=== PATIENT | male | born 1940 | race Caucasian/White ===

== ENCOUNTER 2019-10-04 08:37 | Inpatient (IN) | payer OTHER, MEDICARE ==
[~2019-10-04] VITALS: Ht 182.9 cm; Wt 166.5 kg
[2019-10-04 08:39] VITALS: BP 166/70
[2019-10-04] MEDS ORDERED: ALLOPURINOL 10100 M3 PO (08:53)
[2019-10-04] MEDS ORDERED: PROAIR HFA8.5 GM INH (08:53)
[2019-10-04] MEDS ORDERED: ADVAIR 250-501 EACH INH (08:53)
[2019-10-04] MEDS ORDERED: ASA81BEC PO (08:54)
[2019-10-04] MEDS ORDERED: AZELASTINE205.5 MCG/ NASAL (08:55)
[2019-10-04] MEDS ORDERED: FUROSEMIDE 40 M40 MG PO (08:55)
[2019-10-04] MEDS ORDERED: KEFLEX500 M1 PO (08:55)
[2019-10-04] MEDS ORDERED: HUMULIN 70100 UNIT/3 SUBQ (08:56)
[2019-10-04] MEDS ORDERED: LEVO-T100 MCG PO (08:57)
[2019-10-04] MEDS ORDERED: HYDROCORTISONE30 G4 PO (08:57)
[2019-10-04] MEDS ORDERED: MAGNESIUM250 M1 PO (08:58)
[2019-10-04] MEDS ORDERED: METHOTREXATE 22.5 M1 PO (08:59)
[2019-10-04] MEDS ORDERED: METOLAZONE 2.52.5 M1 PO (09:00)
[2019-10-04] MEDS ORDERED: POTASSIUM20 PO (09:01)
[2019-10-04] MEDS ORDERED: TOPROL XL50 MG PO (09:01)
[2019-10-04] MEDS ORDERED: CRESTOR40 MG PO (09:02)
[2019-10-04] MEDS ORDERED: ANTACID650 MG PO (09:02)
[2019-10-04] MEDS ORDERED: CHILDREN'S NA10.8 ML TOP (09:03)
[2019-10-04] MEDS ORDERED: B COMPLEX1 EACH PO (09:04)
[2019-10-04 09:54] LABS: ABSOLUTE NEUTROPHILS 10.8 thou/uL (1.4-8.2); BASOPHILS 1.1 % (0.0-2.0); EOSINOPHILS 2.1 % (0.0-3.0); HEMATOCRIT 40.5 % (42.0-52.0); HEMOGLOBIN 13.1 gm/dL (14.0-18.0); LYMPHOCYTES 9.6 % (24.0-44.0); MCH 30.9 pg (26.0-34.0); MCHC 32.3 g/dL (28.0-37.0); MCV 95.7 fL (80.0-100.0); MONOCYTES 9.1 % (1.0-8.0); PLATELET COUNT 184 thou/uL (150-400); POLYS 78.1 % (36.0-66.0); RBC 4.23 mil/uL (4.50-6.00); RDW 15.7 % (10.5-14.5); WBC 13.8 thou/uL (4.0-11.0)
[2019-10-04 10:04] LABS: CALCIUM 9.6 mg/dL (8.5-10.1); CREATININE 2.2 mg/dL (0.7-1.3)
[2019-10-04 10:12] LABS: TROPONIN-I 0.09 ng/mL (<0.06)
--- NOTE | 2019-10-04 13:36 | 2DMMODE ---
[facility] [place] [address] 2 D/M-MODE ECHOCARDIOGRAM Name: REGINA MORA Room #: 170-2 ADM IN M.R.#: [id number] Admission: 10/04/19 Attend Phys: Britton Vang, Discharge: Date of : 38 Report #: [id number] THIS REPORT FOR: //name// APPROVED REPORT Study performed: 10/04/2019 13:28:59 EXAM: Comprehensive 2D, Doppler, and color-flow Echocardiogram Patient Location: ER Status: routine BSA: 2.72 HR: 85 bpm BP: 160/77 mmHg Rhythm: NSR Other Information Study Quality: Adequate Indications Fluid overload. Short of breath. Hx: morbid obesity, HTN, HLP, DM. 2D Dimensions RVDd: 39.43 mm IVSd: 14.00 (7-11mm) LVOT Diam: 22.51 (18-24mm) LVDd: 59.00 mm PWd: 13.00 (7-11mm) Ascending Ao: 41.36 (22-36mm) LVDs: 47.34 (25-40mm) Aortic Root: 37.50 mm Volumes Left Atrial Volume (Systole) Single Plane 4CH: 132.31 mL Single Plane 2CH: 114.82 mL LA ESV Index: 51.00 mL/m2 Aortic Valve AoV Peak Miguel.: 4.79 m/s AO Peak Gr.: 91.80 mmHg LVOT Max P.51 mmHg AO Mean Gr.: 62.25 mmHg AO V2 Mean: 3.81 m/s LVOT Max V: 0.94 m/s AO V2 VTI: 106.79 cm DESI Vmax: 0.78 cm2 Mitral Valve [facility] [address] [address] 2 D/M-MODE ECHOCARDIOGRAM Name: REGINA MORA Room #: [facility]2 ADM IN .R.#: [id number] Admission: 10/04/19 Attend Phys: Britton Vang, Discharge: Date of : 39 Report #: [id number] MV Decel. Time: 203.81 ms MV PHT: 59.10 ms IVRT: 57.67 ms Pulmonary Valve PV Peak Miguel.: 0.92 m/s PV Peak Gr.: 3.36 mmHg Tricuspid Valve TR Peak Miguel.: 3.25 m/s RAP Estimate: 10.00 mmHg TR Peak Gr.: 42.39 mmHg PA Pressure: 52.00 mmHg Left Ventricle Left ventricle is mildly dilated. Regional wall motion abnormalities are noted. Moderate concentric left ventricular hypertrophy. The left ventricular systolic function is normal. LVEF is 55%. Moderate diastolic dysfunction is present (pseudonormal filling). Right Ventricle The right ventricle is normal size. The right ventricular systolic function is normal. Atria Left atrium is severely dilated. The right atrium size is normal. Aortic Valve Aortic valve is heavily calcified. Mild aortic regurgitation. There is severe valvular aortic stenosis. Calculated aortic valve area is 0.8 cm2 with maximum pressure gradient of 92 mmHg and mean pressure gradient of 62 mmHg. Mitral Valve Mitral valve leaflets are thickened and calcified. Heavily calcified annulus. Moderate to severe mitral regurgitation Mild mitral stenosis with a mean pressure gradient of 8mmHg. Tricuspid Valve The tricuspid valve is normal in structure. Mild tricuspid regurgitation. Estimated PAP is 50mmHg. Pulmonic Valve The pulmonary valve is normal in structure. Trace pulmonic regurgitation. Great Vessels [facility] [address] [place] [address] 2 D/M-MODE ECHOCARDIOGRAM Name: [facility] Room #: 170-2 ADM IN M.R.#: [id number] Admission: 10/04/19 Attend Phys: Britton Vang, Discharge: Date of : 39 Report #: [id number] The aortic root is normal in size. Ascending aorta is dilated at 4.1cm. IVC is dilated and collapses >50% with inspiration. Pericardium There is no pericardial effusion. <Conclusion> Left ventricle is mildly dilated. Moderate concentric left ventricular hypertrophy. The left ventricular systolic function is normal. Moderate diastolic dysfunction is present (pseudonormal filling). The right ventricle is normal size. Left atrium is severely dilated. There is severe valvular aortic stenosis. Mild aortic regurgitation. Mitral valve leaflets are thickened and calcified. Heavily calcified annulus. Moderate to severe mitral regurgitation Mild tricuspid regurgitation. Estimated PAP is 50mmHg. <ELECTRONICALLY SIGNED> By: Hamilton Olmstead MD 10/04/191335 35 35 Hamilton Olmstead MD /INF
[2019-10-04 16:45] VITALS: BP 134/56
[2019-10-04 17:46] VITALS: BP 134/67
[2019-10-04] MEDS ORDERED: SODIUM BICARBO650 M3 PO (18:06)
[2019-10-04 19:27] VITALS: BP 139/83
[2019-10-04 23:08] LABS: GLYCOHEMOGLOBIN (HGB A1C) 7.3 % (4.8-5.6)
[2019-10-04 23:35] VITALS: BP 111/53
--- NOTE | 2019-10-05 03:10 | NUR ---
Patient making slow progress towards outcome goals. SOA on roomair, sat 94%. Oxygen 2L NC applied sats 96%, shortness of air improved. Diuresing from Lasix. Meets high fall risk criteria but patient declined alarm and wrist band. Does have yellow socks on. Calls out appropriately for needs. Gait steady when observed walking. Vital signs and rhythm stable.
[2019-10-05 03:29] VITALS: BP 122/49
[2019-10-05 05:44] LABS: ABSOLUTE NEUTROPHILS 8.7 thou/uL (1.4-8.2); ANION GAP 10 mmol/L (7-16); BASOPHILS 0.9 % (0.0-2.0); BUN 78 mg/dL (7-18); CALCIUM 9.6 mg/dL (8.5-10.1); CHLORIDE 101 mmol/L (98-107); CHOLESTEROL 166 mg/dL (<200); CO2 29 mmol/L (21-32); CREATININE 2.4 mg/dL (0.7-1.3); EOSINOPHILS 1.9 % (0.0-3.0); GLUCOSE 264 mg/dL (74-106); HDL CHOLESTEROL 41 mg/dL (>40); HEMATOCRIT 38.8 % (42.0-52.0); HEMOGLOBIN 12.7 gm/dL (14.0-18.0); LDL CHOLESTEROL 92 mg/dL (<100); LYMPHOCYTES 7.8 % (24.0-44.0); MAGNESIUM 1.8 mg/dL (1.8-2.4); MCH 31.3 pg (26.0-34.0); MCHC 32.9 g/dL (28.0-37.0); MCV 95.1 fL (80.0-100.0); MONOCYTES 9.6 % (1.0-8.0); PLATELET COUNT 191 thou/uL (150-400); POLYS 79.8 % (36.0-66.0); RBC 4.08 mil/uL (4.50-6.00); RDW 15.4 % (10.5-14.5); SODIUM 140 mmol/L (136-145); TRIGLYCERIDE 165 mg/dL (<150); VLDL 33 mg/dL (<40); WBC 10.8 thou/uL (4.0-11.0)
[2019-10-05 06:15] LABS: SERUM ASSESSMENT Clear
[2019-10-05 07:45] VITALS: BP 140/65
--- NOTE | 2019-10-05 09:59 | NUR ---
ASSESSMENT: CM REVIEWED CHART AND MET WITH PATIENT AT THE BEDSIDE. PT WAS ADMITTED WITH ELEVATED TROPONIN. PT REPORTS HE LIVES IN A HOUSE WITH HIS DAUGHTER AND HER . PT REPORTS HAVING 2 STEPS TO ENTER WITH A POST HE CAN HOLD ON TO. PT REPORTS ONCE INSIDE HE DOES NOT HAVE TO USE ANY STEPS. PT REPORTS HE USES A CANE FOR AMBULATION. PT STATES HE HAS A GRAB BAR AND SHOWER CHAIR AND IS INDEPENDENT WITH ADLS. PT DOES NOT WEAR OXYGEN. PT REPORTS HE HAS BEEN TO SNF IN THE PAST OUT OF STATE BUT NOT RECENTLY. PT DOES NOT ANTICIPATE HAVING ANY NEEDS AT DISCHARGE. PT REPORTS HE HAS NOT HAD HH. PT/OT IS ORDERED AND EVALS ARE PENDING. CM WILL CONTINUE TO FOLLOW TO ASSIST NEEDED.
--- NOTE | 2019-10-05 10:25 | HC ---
[facility] [place] [address] CONSULTATION Name: REGINA MORA Room #: 349-I ADM IN M.R.#: [id number] Admission: 10/04/19 Attend Phys: Britton Vang MD Discharge: Date of : 39 Report #: [id number] THIS REPORT FOR: //name// CC: FAM unknown Britton Vang DATE OF SERVICE: 10/04/2019 CONSULTING PHYSICIAN: Dr. Vang. REASON FOR CONSULTATION: Uncontrolled type 2 diabetes mellitus, hypothyroidism. HISTORY OF PRESENT ILLNESS: This is an 79-year-old male patient who is being admitted due to progressive shortness of breath and dyspnea on exertion. His background is noted for obstructive sleep apnea, CAD, peripheral vascular disease as well as diabetes mellitus and hypertension. The patient has had type 2 diabetes mellitus for over 25 years and has long been on insulin therapy only. He notes that he was not able to keep up with the cost of insulin analogs and was eventually maintained on a combination of Novolin 70/30 at a dose of 110 units 2-3 times a day in addition to human R insulin taken at a dose of 80 units 2-3 times a day as well. He notes that his blood glucose values fluctuate rather widely going anywhere from severe hypoglycemia in the 40s to severe hyperglycemia in the 500 range. However, he maintains that the last hemoglobin A1c that he recalls was at 7.3%. The patient obtains routine eye exams and is not aware of issues of diabetic retinopathy affecting his eyes. The patient does not have major difficulties with peripheral diabetic neuropathy. He notes that his creatinine baseline is about 2.4. The patient also is hypothyroid and has been so for many years and is maintained currently on levothyroxine 150 mcg daily, which he says has been on board for a few years. The patient is known to have hyperlipidemia and is on therapy with rosuvastatin 40 mg daily as well as has hypertension and is maintained on treatment with metolazone. REVIEW OF SYSTEMS: CONSTITUTIONAL: Fatigue, tiredness, but not body weight changes, fever or chills. PULMONARY: Dyspnea on exertion, shortness of breath, cough and hemoptysis. CARDIAC: Dyspnea on exertion, orthopnea, progressive lower extremity swelling. No chest pain. GASTROINTESTINAL: Abdominal distention, discomfort, nausea, but not vomiting. NEUROLOGY: Occasional lightheadedness, dizziness, right arm numbness, but not loss of consciousness or seizure activity. PSYCHIATRIC: No major issues or delusions, hallucinations. [facility] [address] [place] [address] CONSULTATION Name: REGINA MORA Room #: 349-I ADM IN ..#: [id number] Admission: 10/04/19 Attend Phys: Britton Vang MD Discharge: Date of : 39 Report #: [id number] SKIN: No major issues with rash, ulceration or other major skin changes. Otherwise, his review of systems is noncontributory other than those mentioned in HPI. PAST MEDICAL HISTORY: 1. Type 2 diabetes mellitus. 2. Polymyalgia rheumatica. 3. Cellulitis. 4. Chronic bronchitis. 5. Gout. 6. Obstructive sleep apnea. 7. Cataracts. 8. Peripheral vascular disease, status post carotid endarterectomy. 9. Morbid obesity. 10. Osteoarthritis. 11. History of coronary artery disease. OUTPATIENT MEDICATIONS: Include: 1. Albuterol. 2. Advair. 3. Allopurinol. 4. Aspirin. 5. Keflex. 6. Furosemide. 7. Humulin 70/30 insulin 110 units t.i.d. 8. Human R insulin 70-80 units t.i.d. 9. Levothyroxine 150 mcg daily. 10. Hydrocortisone 20 mg b.i.d. 11. Magnesium 535 mg daily. 12. Methotrexate 2.5 mg weekly. 13. Metolazone 5 mg. 14. Metoprolol 50 mg daily. 15. KCl 10 mEq daily. 16. Rosuvastatin 40 mg daily. 17. Antacid 650 mg b.i.d. 18. Vitamin B complex. ALLERGIES: No known drug allergies. FAMILY HISTORY: Is noted for significant history of heart disease. SOCIAL HISTORY: The patient has 2 children. Denies the use of alcohol or illicit drugs. He is an ex-smoker, quit more than a year ago. PHYSICAL EXAMINATION: GENERAL: Pleasant male patient who is not in apparent pain or [address] [place] [address] CONSULTATION Name: REGINA MORA Room #: 349-I ADM IN M.R.#: [id number] Admission: 10/04/19 Attend Phys: Britton Vang MD Discharge: Date of : 39 Report #: [id number] distress, lying in bed comfortably. VITAL SIGNS: Blood pressure is 160/77 mmHg, heart rate is 87 beats per minute, respiration 34 per minute, temperature 36.3 degrees. CONSTITUTIONAL: The patient lies in bed comfortably. He is not in apparent pain or distress. HEENT: Anicteric sclerae. Intact extraocular motions. NECK: Supple, without JVD, carotid bruits or lymphadenopathy. I do not appreciate thyromegaly. CHEST: Noted for distant breath sounds with scattered rhonchi, wheezes and bibasilar crackles. HEART: Regular rate and rhythm without murmurs or gallops. ABDOMEN: Soft and lax without tenderness or organomegaly, distended, but not tense. No guarding is appreciated. EXTREMITIES: Lower extremity exam is noted for pitting edema bilaterally with chronic stasis dermatitis. NEUROLOGIC: Awake, alert and oriented to time, place and person. The remainder of his examination is nonfocal. PSYCHIATRIC: Normal mood and affect pleasant, interactive. LABORATORY DATA: Sodium 139, potassium 4.0, chloride 102, CO2 28, anion gap 9, BUN 76, creatinine 2.2. Glucose 218, calcium 9.6, GFR 29. Troponin 0.09. BNP 8033. White blood count 13.8, hemoglobin 13.1 and platelets 184. A portable chest x-ray was noted for cardiomegaly, vascular congestion with mild infiltrate diffusely suggesting edema. ASSESSMENT AND PLAN: 1. Type 2 diabetes mellitus. As noted above, the patient has had a longstanding history of type 2 diabetes mellitus that has been marked by poor control and very large insulin dose requirements. As noted in HPI, the patient made a very valid point of cost and access issues to insulin analogs, which would make human insulin the far more practical choice for him. However, and especially in view of his large dose requirement, mixed insulin would not be the best choice for him, and as such, I would like to split his insulin intake to where it will consist of an N and an R component for more flexibility and control. That said, I will start the patient on coverage with human N insulin a.k.a. NPH insulin at a dose of 80 units twice a day and cover his meals with human R insulin at a dose of 50 units with each meal while we maintain support with high intensity Humalog supplemental scale and check his blood glucose values a.c. and at bedtime. The patient's calculated creatinine clearance factoring his age and weight shows a creatinine clearance of 60, which is permissive of some oral options. I will await further medical and clinical stability before we venture into this. 2. Hypothyroidism. The patient has a longstanding history of hypothyroidism and is maintained on a stable dose of levothyroxine. I will further evaluate the adequacy of this dose with a TSH and free T4 levels. 3. Hyperlipidemia. The patient is maintained on high dose statin therapy for [facility] [address] [place] [address] [facility] Room #: 349-I ADM IN .R.#: [id number] Admission: 10/04/19 Attend Phys: Britton Vang MD Discharge: Date of : 39 Report #: [id number] hyperlipidemia. He is to continue with the same. 4. Congestive heart failure, hypertension. The patient has ongoing issues in this regard and a Cardiology evaluation is pending. I certainly appreciate this consultation by Dr. Vang. <ELECTRONICALLY SIGNED> By: Harmeet Schneider MD 10/05/19 1025 1257 0037 MD kristan Joyner
--- NOTE | 2019-10-05 10:56 | NUR ---
Assess due to high BMI 50.9=extreme class III obesity and RD consult received per pt request. Admit with fluid overload. Hx poor controlled diabetes. Renal and cardiology consulted, and Endocronologist managing pts BG and insulin needs. Hx lap band placement in 2008 (pt still has)-pt asked to speak with RD regarding menu adjustments as he cannot eat dry foods without them "coming back up on me". Pt able to order own foods and will allow small side of low Na gravy. Pt denied need for any diet education. A1C is 7.3. Pt states was 455 prior to lap band in 2008, and now maintains 355 lb. Current wt is up 375 lb (fluid overload). Asking for extra juice to prevent cramping-explained this is not encouraged as BG are elevated. Low nutrition risk
[2019-10-05 11:19] VITALS: BP 135/60
[2019-10-05 15:21] VITALS: BP 111/50
--- NOTE | 2019-10-05 16:50 | EKG ---
[place] [address] [facility] [place] [address] ELECTROCARDIOGRAM REPORT Name: ABBYREGINA Room #: 349-I ADM IN M.R.#: [id number] Admission: 10/04/19 Attend Phys: Britton Vang MD Discharge: Date of : 39 Report #: [id number] THIS REPORT FOR: //name// [facility] ED Test Date: 2019-10-04 Test Time: 08:43:03 Pat Name: REGINA MORA Department: Room: 349 Gender: M E Commerce Solution Architect: NAJMA : 1940 Requested By: Miguelito Hernandez Order Number: [id number] MD: Ramos Moya Measurements Intervals [place] Rate: 81 P: 1 NE: 183 QRS: -21 QRSD: 95 T: 13 QT: 410 QTc: 476 Interpretive Statements Sinus rhythm Atrial premature complex Left ventricular hypertrophy Borderline prolonged QT interval Baseline wander in lead(s) II No previous ECG available for comparison Electronically Signed On 10-05-2019 16:50:12 CLERICAL TRANSCRIBER by Ramos Moya [email or web address] <ELECTRONICALLY SIGNED> By: Ramos Moya MD, [facility] 10/05/19 9082 0843 0843 Ramos Moya MD, [facility] /EPI
--- NOTE | 2019-10-05 17:05 | EKG ---
[address] [address] ELECTROCARDIOGRAM REPORT Name: REGINA MORA Room #: 349-I ADM IN M.R.#: [id number] Admission: 10/04/19 Attend Phys: Britton Vang MD Discharge: Date of : 39 Report #: [id number] THIS REPORT FOR: //name// [facility] Test Date: 2019-10-05 Test Time: 08:35:31 Pat Name: REGINA MORA Department: Room: 349 I Gender: M Spreader: rt : 1940 Requested By: Rosa Boyer Order Number: [id number] MD: Ramos Moya Measurements Intervals [place] Rate: 105 P: 44 CO: 158 QRS: -24 QRSD: 98 T: 90 QT: 387 QTc: 512 Interpretive Statements Sinus tachycardia Ventricular premature complex LVH with secondary repolarization abnormality Prolonged QT interval No previous ECG available for comparison Electronically Signed On 10-05-2019 17:05:33 MA[employer]GER [employer] by Ramos Moya [email or web address] <ELECTRONICALLY SIGNED> By: Ramos Moya MD, [facility] 10/05/19 1705 4 4 Ramos Moya MD, [facility] /EPI
[2019-10-05 19:21] VITALS: BP 117/61
[2019-10-06 03:50] VITALS: BP 101/41
[2019-10-06 05:16] LABS: ALBUMIN 2.8 g/dL (3.4-5.0); CALCIUM 9.4 mg/dL (8.5-10.1); CREATININE 2.3 mg/dL (0.7-1.3); POTASSIUM 4.7 mmol/L (3.5-5.1)
--- NOTE | 2019-10-06 05:28 | NUR ---
SLEPT MOST OF SHIFT. WORKING ON GOALS AND PLAN OF CARE FOR NOC. MAINTAIN SAFE ENVIRONMENT. UP AD DOUGIE WITH STEADY GAIT. PROGRESSING SLOWLY TOWARDS DISCHARGE GOALS. WATCHING BLOOD SUGAR CLOSELY. CONTINUE TO ASSES.
[2019-10-06 07:44] VITALS: BP 125/45
[2019-10-06] MEDS ORDERED: METOPROLOL SUCC50 MG PO (09:27)
[2019-10-06 11:50] VITALS: BP 130/74
--- NOTE | 2019-10-06 12:08 | NUR ---
ASSUMED CARE OF PT AT 0700. PT LAERT AND ORIENTED. INSULIN REGIMEN ADJUSTED BY ENDOCRONOLOGIST. UP AD DOUGIE W/ STEADY GAIT. VOICING NO CONCERNS. ANTICIPATING D/C LATER TODAY PER PHYSICIAN. WILL CONT TO MONITOR.
[2019-10-06] MEDS ORDERED: HUMULIN R100 UNIT/1 SUBQ (13:32)
[2019-10-06] MEDS ORDERED: HUMULIN N100 UNIT/1 SUBQ (13:32)
[2019-10-06] MEDS ORDERED: HUMALOG100 UNIT/1 SUBQ (13:33)
[2019-10-06 13:41] VITALS: BP 130/74
--- NOTE | 2019-10-06 14:20 | NUR ---
ON-GOING ASSESSMENT: CM REVIEWED CHART AND SPOKE WITH ATTENDING. PT HAS ORDERS TO DISCHARGE HOME TODAY WITH NO NEEDS. PT LIVES WITH DAUGHTER AND SON IN LAW.
--- NOTE | 2019-10-07 07:41 | HC ---
[facility] [place] [address] [place] [address] CONSULTATION Name: REGINA MORA Room #: 349-I [facility] IN M.R.#: [id number] Admission: 10/04/19 Attend Phys: Britton Vang MD Discharge: 10/06/19 Date of : 39 Report #: [id number] THIS REPORT FOR: //name// CC: FAM unknown Britton Vang REASON FOR CONSULTATION: Elevated creatinine, chronic kidney disease. REASON FOR PRESENTATION: Shortness of breath. HISTORY OF PRESENT ILLNESS: This is an 79-year-old with past medical history of chronic kidney disease, diabetes mellitus, hypertension, polymyalgia rheumatica. He presented yesterday reporting that he has been having some shortness of breath with productive cough that started the morning of yesterday. This was associated with white sputum. No reported fever or chills. The patient was admitted to be further evaluated. No hemoptysis. Creatinine on presentation was 2.2 and had risen up to 2.4. I was asked to evaluate him because of his chronic kidney disease. Cardiac echo was done. He was found to have moderate to severe mitral regurgitation with mild mitral stenosis. He was also found to have severe aortic stenosis with PA pressure of around 50. From the renal perspective, the patient tells me that he has diabetes mellitus for the last 35 years, but he denies any diabetic retinopathy. He also tells me that he has been hypertensive for same period of time. The patient had a shoulder surgery back in 2012 that ended up being complicated by an acute kidney injury, almost requiring him a hemodialysis, but the patient's kidney function recovered and he has maintained his creatinine anywhere from 2 to 2.5. He also tells me that he has been maintained on steroids for polymyalgia rheumatica. PAST MEDICAL HISTORY: 1. Polymyalgia rheumatica. 2. Diabetes mellitus. 3. Hypertension. 4. Status post carotid endarterectomy. 5. Hyperlipidemia. 6. Status post shoulder surgery. 7. Status post bilateral knee replacement. 8. Chronic kidney disease, complicated post-shoulder surgery with acute kidney injury. MEDICATIONS: 1. Metolazone. 2. Sodium bicarb. 3. Aspirin. 4. Lasix 80 b.i.d. 5. Levothyroxine. SOCIAL HISTORY: Denies drug or alcohol abuse. He is retired. 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 FAMILY HISTORY: Significant for diabetes mellitus and hypertension. REVIEW OF SYSTEMS: GENERAL: No fever or chills. CARDIOVASCULAR: As per the history of present illness. PULMONARY: As per the history of present illness. MUSCULOSKELETAL: Cellulitic changes on both lower extremities. GASTROINTESTINAL: No nausea or vomiting. GENITOURINARY: No frequency. No urgency. SKIN: As per the history of present illness, currently being treated for cellulitis PHYSICAL EXAMINATION: VITAL SIGNS: Blood pressure is 120/49 from 160/70. HEAD AND NECK: No jugular venous distention. CHEST: Bilateral crackles. CARDIOVASCULAR: No rub. Distant S1 and S2. ABDOMEN: Soft, nontender. EXTREMITIES: Lower extremities, +1 edema. Some redness over the tibial black. LABORATORY DATA: From today revealed sodium of 140, BUN of 78, creatinine of 2.4. Blood sugar is elevated at 382. IMPRESSION AND PLAN: 1. Chronic kidney disease. 2. Severe aortic stenosis. 3. Mitral stenosis with mitral regurgitation. 4. Pulmonary hypertension. 5. Diabetes mellitus. 6. Hypertension. 7. The patient seems to be at his baseline from the renal perspective. He received appropriate amount of diuresis yesterday. I will stop IV diuresis and switch to oral diuretics today. 8. Continue to hold metolazone for now. 9. Cardiology following regarding his valvular issues. 10. Salt restrictions. 11. Management of his cellulitis per primary team. <ELECTRONICALLY SIGNED> By: Chris Hanna MD 10/07/19 0741 0707 1122 Chris Hanna MD /nt
== END 2019-10-06 15:20 | disposition home or self-care (01) | DRG 291 ==
LOC: ER 08:37 → 3W 11:13 → EROBS 11:13 → 3W 17:43
PROVIDERS: Emergency Medicine; Hospitalist; Nurse Practitioner; ADMIT Internal Medicine
DX: I13.0 Hypertensive heart and chronic kidney disease with heart failure and stage 1 through stage 4 chronic kidney disease, or unspecified chronic kidney disease (principal); I50.33 Acute on chronic diastolic (congestive) heart failure; N17.9 Acute kidney failure, unspecified; L03.115 Cellulitis of right lower limb; L03.116 Cellulitis of left lower limb; Z68.43 Body mass index [BMI] 50.0-59.9, adult; E11.22 Type 2 diabetes mellitus with diabetic chronic kidney disease; M35.3 Polymyalgia rheumatica; E78.5 Hyperlipidemia, unspecified; M10.9 Gout, unspecified; G47.33 Obstructive sleep apnea (adult) (pediatric); E11.51 Type 2 diabetes mellitus with diabetic peripheral angiopathy without gangrene; E66.01 Morbid (severe) obesity due to excess calories; M19.90 Unspecified osteoarthritis, unspecified site; I65.23 Occlusion and stenosis of bilateral carotid arteries; I25.10 Atherosclerotic heart disease of native coronary artery without angina pectoris; E03.9 Hypothyroidism, unspecified; N18.9 Chronic kidney disease, unspecified; I35.0 Nonrheumatic aortic (valve) stenosis; I05.2 Rheumatic mitral stenosis with insufficiency; I27.20 Pulmonary hypertension, unspecified; Z66 Do not resuscitate; I87.8 Other specified disorders of veins; J44.9 Chronic obstructive pulmonary disease, unspecified; E11.65 Type 2 diabetes mellitus with hyperglycemia; D72.829 Elevated white blood cell count, unspecified; Z82.49 Family history of ischemic heart disease and other diseases of the circulatory system; Z87.891 Personal history of nicotine dependence; Z79.51 Long term (current) use of inhaled steroids; Z79.82 Long term (current) use of aspirin; Z79.899 Other long term (current) drug therapy; Z83.3 Family history of diabetes mellitus
CPT/HCPCS: 10879

== ENCOUNTER → 2020-02-04 | Outpatient (CLI) | payer OTHER, MEDICARE ==
[~2020-02-04] MED LIST: ADVAIR 250-501 EACH INH; ALLOPURINOL 10100 M3 PO; ANTACID650 MG PO; ASA81BEC PO; AZELASTINE205.5 MCG/ NASAL; B COMPLEX1 EACH PO; CHILDREN'S NA10.8 ML TOP; CRESTOR40 MG PO; FUROSEMIDE 40 M40 MG PO; HUMALOG100 UNIT/1 SUBQ; HUMULIN 70100 UNIT/3 SUBQ; HUMULIN N100 UNIT/1 SUBQ; HUMULIN R100 UNIT/1 SUBQ; HYDROCORTISONE30 G4 PO; KEFLEX500 M1 PO; LEVO-T100 MCG PO; MAGNESIUM250 M1 PO; METHOTREXATE 22.5 M1 PO; METOLAZONE 2.52.5 M1 PO; METOPROLOL SUCC50 MG PO; NORCO 5-325 TA1 EAC1 PO; POTASSIUM20 PO; PROAIR HFA8.5 GM INH; SODIUM BICARBO650 M3 PO; TOPROL XL50 MG PO
== END ==
LOC: SJCVC 10:40
DX: R94.31 Abnormal electrocardiogram [ECG] [EKG] (principal); I13.0 Hypertensive heart and chronic kidney disease with heart failure and stage 1 through stage 4 chronic kidney disease, or unspecified chronic kidney disease; I50.32 Chronic diastolic (congestive) heart failure; I35.0 Nonrheumatic aortic (valve) stenosis; J44.9 Chronic obstructive pulmonary disease, unspecified; E78.00 Pure hypercholesterolemia, unspecified; Z79.899 Other long term (current) drug therapy

== ENCOUNTER 2020-02-10 11:29 | Emergency (ER) | payer OTHER, MEDICARE ==
[~2020-02-10] VITALS: Ht 182.9 cm; Wt 160.1 kg
[~2020-02-10 11:29] MED LIST changes: -NORCO 5-325 TA1 EAC1 PO
--- NOTE | 2020-02-10 12:46 | EKG ---
[facility] [place] [address] [place] [address] ELECTROCARDIOGRAM REPORT Name: REGINA MORA Room #: [facility].#: [id number] Admission: 02/10/20 Attend Phys: Discharge: Date of : 39 Report #: [id number] THIS REPORT FOR: cc: FAM - Family physician unknown FAM - Family physician unknown Bacilio Vo MD ~ THIS REPORT FOR: //name// [facility] ED Test Date: 2020-02-10 Test Time: 12:36:49 Pat Name: REGINA MORA Department: Room: Gender: M Manager [facility] 1940 Requested By: Catrachita Wellington Order Number: [id number] MD: Bacilio Vo Measurements Intervals [place] Rate: 87 P: 28 NM: 171 QRS: -30 QRSD: 96 T: 47 QT: 397 QTc: 478 Interpretive Statements Sinus rhythm Abnormal R-wave progression, early transition Left ventricular hypertrophy Borderline prolonged QT interval Compared to ECG 10/05/2019 08:35:31 Sinus tachycardia no longer present Ventricular premature complex(es) no longer present Early repolarization no longer present Electronically Signed On 02-10-2020 12:45:17 CDT by Bacilio Vo [email or web address] <ELECTRONICALLY SIGNED> By: Bacilio Vo MD 02/10/20 1245 1236 1236 Bacilio Vo MD /EPI
[2020-02-10 13:13] LABS: HEMATOCRIT 40.8 % (42.0-52.0); HEMOGLOBIN 12.9 gm/dL (14.0-18.0); MCH 30.7 pg (26.0-34.0); MCHC 31.6 g/dL (28.0-37.0); MCV 97.2 fL (80.0-100.0); PLATELET COUNT 199 thou/uL (150-400); WBC 23.6 thou/uL (4.0-11.0)
[2020-02-10 13:22] LABS: CALCIUM 9.7 mg/dL (8.5-10.1); CREATININE 2.4 mg/dL (0.7-1.3); POTASSIUM 4.7 mmol/L (3.5-5.1)
[2020-02-10 13:56] LABS: ABSOLUTE NEUTROPHILS 20.8 thou/uL (1.4-8.2); PLATELET ESTIMATE NORMAL
[2020-02-10 17:00] LABS: URINE BILIRUBIN NEGATIVE (Negative); URINE BLOOD NEGATIVE (Negative); URINE CLARITY CLEAR; URINE COLOR YELLOW; URINE GLUCOSE-RANDOM* NEGATIVE (Negative); URINE KETONES NEGATIVE (Negative); URINE LEUKOCYTES-REFLEX TRACE (Negative); URINE NITRITE-REFLEX NEGATIVE (Negative); URINE PROTEIN (DIPSTICK) 2+ (Negative); URINE UROBILINOGEN 0.2 E.U./dl (0.2-1.0)
[2020-02-10 17:10] LABS: CASTS None Seen /LPF (None Seen); CRYSTALS None Seen /LPF (None Seen); SQUAMOUS 0-3 Few /LPF (0-3); URINE RBC None Seen /HPF (0-2); URINE WBC-REFLEX 0-5 Rare /HPF (0-5)
[2020-02-10 17:11] LABS: BACTERIA-REFLEX 1-9 Few /HPF (None Seen)
[2020-02-10] MEDS ORDERED: NORCO 5-325 TA1 EAC1 PO (17:21)
[2020-02-10 17:49] VITALS: BP 144/59
== END 2020-02-10 17:51 | disposition home or self-care (01) ==
LOC: ER 11:29
PROVIDERS: Nurse Practitioner Family
DX: D72.829 Elevated white blood cell count, unspecified (principal); M25.512 Pain in left shoulder; M25.551 Pain in right hip; M54.9 Dorsalgia, unspecified; E11.9 Type 2 diabetes mellitus without complications; M10.9 Gout, unspecified; I50.9 Heart failure, unspecified; Z79.82 Long term (current) use of aspirin; Z79.899 Other long term (current) drug therapy; Z79.4 Long term (current) use of insulin; Z98.890 Other specified postprocedural states

== ENCOUNTER → 2020-07-13 | Outpatient (CLI) | payer OTHER, MEDICARE ==
[~2020-07-13] MED LIST changes: +NORCO 5-325 TA1 EAC1 PO
== END ==
LOC: HYPER 12:55
PROVIDERS: ATTEND Emergency Medicine Emergency Medical Services
DX: S80.02XA Contusion of left knee, initial encounter (principal); E11.622 Type 2 diabetes mellitus with other skin ulcer; L98.492 Non-pressure chronic ulcer of skin of other sites with fat layer exposed; R60.9 Edema, unspecified; E11.40 Type 2 diabetes mellitus with diabetic neuropathy, unspecified; E11.22 Type 2 diabetes mellitus with diabetic chronic kidney disease; I12.9 Hypertensive chronic kidney disease with stage 1 through stage 4 chronic kidney disease, or unspecified chronic kidney disease; N18.4 Chronic kidney disease, stage 4 (severe); I25.10 Atherosclerotic heart disease of native coronary artery without angina pectoris; J44.9 Chronic obstructive pulmonary disease, unspecified; Z87.891 Personal history of nicotine dependence; Z95.818 Presence of other cardiac implants and grafts; Z79.82 Long term (current) use of aspirin; Z79.4 Long term (current) use of insulin; Z79.01 Long term (current) use of anticoagulants; W19.XXXA Unspecified fall, initial encounter; Y93.89 Activity, other specified; Y92.89 Other specified places as the place of occurrence of the external cause; Y99.8 Other external cause status

== ENCOUNTER 2020-07-20 11:05 | Inpatient (IN) | payer OTHER, MEDICARE ==
[~2020-07-20] VITALS: Ht 182.9 cm; Wt 165.5 kg
[2020-07-20 11:09] VITALS: BP 119/50
[2020-07-20] MEDS ORDERED: DOXYCYCLINE 10100 MG PO (12:53)
[2020-07-20 12:59] LABS: ABSOLUTE NEUTROPHILS 16.6 thou/uL (1.4-8.2); BASOPHILS 0.5 % (0.0-2.0); EOSINOPHILS 0.1 % (0.0-3.0); HEMATOCRIT 42.3 % (42.0-52.0); LYMPHOCYTES 4.9 % (24.0-44.0); MCH 32.1 pg (26.0-34.0); MONOCYTES 7.7 % (1.0-8.0); POLYS 86.8 % (36.0-66.0); RBC 4.36 mil/uL (4.50-6.00); RDW 15.6 % (10.5-14.5); WBC 19.1 thou/uL (4.0-11.0)
[2020-07-20 13:06] LABS: CALCIUM 9.6 mg/dL (8.5-10.1); CREATININE 4.8 mg/dL (0.7-1.3)
[2020-07-20 13:15] LABS: TROPONIN-I 0.09 ng/mL (<0.06)
[2020-07-20 13:49] LABS: PLATELET COUNT 215 thou/uL (150-400); PLATELET ESTIMATE NORMAL
[2020-07-20 16:48] VITALS: BP 102/49
[2020-07-20 17:23] VITALS: BP 102/34
[2020-07-20 18:04] VITALS: BP 129/49
[2020-07-20 19:05] VITALS: BP 113/36
[2020-07-20 19:42] VITALS: BP 129/48
[2020-07-21] VITALS (118 sets, daily range): BP systolic 50–155; BP diastolic 13–107
[2020-07-21] MEDS ORDERED: TYLENOL PM EX-1 EACH PO (00:34)
--- NOTE | 2020-07-21 02:20 | NUR ---
Patient ambulated back to bed after bowel movement, was awake, staring straight, slow to respond verbally which is very different from usual.. Repositioned in bed, increasingly unresponsive. Has a pulse but stephon down to 40's, became apneic. Darinel jerez called.
[2020-07-21 03:33] LABS: BE(vivo) -18.1 mmol/L (-2 to +3); HCO3 10.6 mmol/L (22.0-26.0); PCO2 34.7 mmHg (35.0-45.0); PO2 367.6 mmHg (80.0-100.0); pH 7.101 (7.360-7.450); sO2 99.6 % (92.0-98.0)
--- NOTE | 2020-07-21 03:33 | NUR ---
Transfered to ICU 247, report given to Errol MADDEN. Daughter Jacquelyn called and updated with events.
[2020-07-21 05:00] LABS: ABSOLUTE NEUTROPHILS 16.5 thou/uL (1.4-8.2); BASOPHILS 0.5 % (0.0-2.0); EOSINOPHILS 0.6 % (0.0-3.0); HEMOGLOBIN 12.9 gm/dL (14.0-18.0); LYMPHOCYTES 3.5 % (24.0-44.0); MCH 31.7 pg (26.0-34.0); MCHC 31.3 g/dL (28.0-37.0); MCV 101.1 fL (80.0-100.0); MONOCYTES 7.7 % (1.0-8.0); PLATELET COUNT 202 thou/uL (150-400); POLYS 87.7 % (36.0-66.0); RBC 4.06 mil/uL (4.50-6.00); RDW 16.3 % (10.5-14.5); WBC 18.8 thou/uL (4.0-11.0)
[2020-07-21 05:03] LABS: CALCIUM 9.2 mg/dL (8.5-10.1); MAGNESIUM 2.3 mg/dL (1.8-2.4)
[2020-07-21 05:08] LABS: POTASSIUM 5.6 mmol/L (3.5-5.1)
[2020-07-21 05:09] LABS: CREATININE 6.2 mg/dL (0.7-1.3)
--- NOTE | 2020-07-21 06:37 | NUR ---
Pt was transferred from 3W after code blue intubated. ED phsyican started CL at bedside in ICU room with RT/ED charge/house sup/ and 2x online journalist at bedside. Pt arrived on unit at 0300. Sherita ANALYST MICROBIOLOGY LAB at bedside @ 315 examining pt and placing orders for pt. OG was inserted at bedside. CL, ET tube, and OG placement confirmed with xray. DR. Dickinson paged and return called @ 0622 with critical lab values and update on pt status. Order were given for 2 amps of bicarb to be given along with 2 L SC to be given and bmp/abg to be redrawn at 0830. continue with plan of care
[2020-07-21 06:52] LABS: URINE BILIRUBIN NEGATIVE (Negative); URINE BLOOD NEGATIVE (Negative); URINE CLARITY CLEAR; URINE COLOR YELLOW; URINE GLUCOSE-RANDOM* NEGATIVE (Negative); URINE KETONES NEGATIVE (Negative); URINE LEUKOCYTES-REFLEX NEGATIVE (Negative); URINE NITRITE-REFLEX NEGATIVE (Negative); URINE PROTEIN (DIPSTICK) 2+ (Negative); URINE SPECIFIC GRAVITY 1.025 (1.005-1.035); URINE UROBILINOGEN 0.2 E.U./dl (0.2-1.0)
--- NOTE | 2020-07-21 07:44 | NUR ---
ORDERS FOR EVAL AND TREAT HOWEVER Pt TRANSFERRED TO ICU FOLLOWING CODE BLUE. WILL HOLD AND AWAIT NEW ORDERS WHEN APPROPRIATE
[2020-07-21 07:56] LABS: AMORPHOUS URATES Moderate /LPF (None Seen); CASTS None Seen /LPF (None Seen); SQUAMOUS None Seen /LPF (0-3); URINE RBC None Seen /HPF (0-2); URINE WBC-REFLEX 0-5 Rare /HPF (0-5)
[2020-07-21 07:57] LABS: BACTERIA-REFLEX 1-9 Few /HPF (None Seen)
--- NOTE | 2020-07-21 08:28 | EKG ---
[facility] [place] [address] ELECTROCARDIOGRAM REPORT Name: STEVENTYLERREGINA Room #: [facility]- ADM IN M.R.#: [id number] Admission: 07/20/20 Attend Phys: Zhao Cooper MD Discharge: Date of : 38 Report #: [id number] THIS REPORT FOR: cc: FAM - Family physician unknown FAM - Family physician unknown Ramos Moya MD [facility] THIS REPORT FOR: //name// [facility] ED Test Date: 2020-07-20 Test Time: 11:28:09 Pat Name: REGINA MORA Department: Room: [facility] Gender: M Cytopathologist: YOLANDA : 1940 Requested By: Miguelito Hernandez Order Number: [id number] MD: Ramos Moya Measurements Intervals Adel Rate: 110 P: 36 CO: 167 QRS: -30 QRSD: 87 T: 55 QT: 370 QTc: 501 Interpretive Statements Sinus tachycardia Poor R wave progression Prolonged QT interval Compared to ECG 02/10/2020 12:36:49 Heart rate has increased Electronically Signed On 07-21-2020 8:28:29 CDT by Ramos Moya [email or web address] <ELECTRONICALLY SIGNED> By: Ramos Moya MD, [facility] 07/21/20 0828 1128 [id number] Ramos Moya MD, [facility] /EPI
[2020-07-21 09:41] LABS: CALCIUM 8.5 mg/dL (8.5-10.1); CREATININE 6.3 mg/dL (0.7-1.3); POTASSIUM 5.4 mmol/L (3.5-5.1)
--- NOTE | 2020-07-21 10:28 | NUR ---
Nutrition: REC initiate tube feeds within 24-48 hrs. REC Nepro to reach 45 mL/hr with current propofol demands.
--- NOTE | 2020-07-21 10:49 | NUR ---
pt transferred from 3w to icu late yesterday after cesar jerez called. pt intubated, unable to visit with cintia. cm called spoke with daughter carly [phone],intro to cm and dcp. " he was independent prior to hospital. cooks, cleans, provides own self care lives with daughter and son in law. drives vehicle. pcp is dr leah pringle out of [facility]. has cane, cpap, grab bars and shower chair if needed. i have hc and dpoa, now he was dnr at that is want he want, that came with him for dnr correct. "/carly. cm education that he is full code and will need to see outside hospital dnr, dpoa and health care. " ok will try to scan hc and dpoa to you. thank you"/carly. noted per chart, had fall at home, hitting his knee. will cont following as needed for dc needs. no anticipated dc over weekend.
--- NOTE | 2020-07-21 11:11 | NUR ---
SPOKE WITH FAMILY REGARDING PT UPDATE AND OBTAINED CONSENT FOR TEMP DIALYSIS CATH AT 10:33. FAMILY REPORTS THAT PT HAD PREVIOUSLY REQUESTED TO BE DNR ON PREVIOUS ADMISSIONS AND THIS WAS HIS DESIRE. SPOKE WITH DR. DE LA GARZA REGARDING PT STATUS AND RESPONSE TO MEDICATIONS APPROX 11:00. RECEIVED NEW ORDERS FOR MEDICATIONS. ALSO REPORTED FAMILY REQUEST FOR PT TO BE MADE DNR POST CATH PLACEMENT. ORDERS RECEIVED TO IMPLEMENT DNR POST CATH PLACEMENT.
[2020-07-22] VITALS (61 sets, daily range): BP systolic 46–115; BP diastolic 10–36
[2020-07-22 01:06] LABS: HEPATITIS B SURFACE AG Negative (Negative)
[2020-07-22 05:28] LABS: MCH 27.5 pg (26.0-34.0); RBC 3.47 mil/uL (4.50-6.00); RDW 15.8 % (10.5-14.5); WBC 20.6 thou/uL (4.0-11.0)
[2020-07-22 05:45] LABS: HEMOGLOBIN 9.6 gm/dL (14.0-18.0); MCV 83.5 fL (80.0-100.0)
[2020-07-22 06:00] LABS: ALBUMIN 1.7 g/dL (3.4-5.0); CALCIUM 7.7 mg/dL (8.5-10.1); CREATININE 5.8 mg/dL (0.7-1.3); PHOSPHORUS 11.2 mg/dL (2.5-4.9)
[2020-07-22 06:19] LABS: POTASSIUM 6.4 mmol/L (3.5-5.1)
--- NOTE | 2020-07-22 06:41 | NUR ---
SPOKE WITH DAUGHTER (ÁNGEL) AT THE BEGINING OF SHIFT AND INFORMED HER THAT THE PT HAD COMPLETED DIALYSIS TODAY BUT HIS BLOOD PRESURES DID NOT TOLERATE IT. PATIENT IS CURRENTLY ON 4 PRESOORS TRYING TO HELP MAINTAIN ADEQUATE MAP. SPOKE WITH DR. DE LA GARZA MULTIPLE TIMES THROUGHOUT THE NIGHT TO UPDATE HIM ON PTS CONDITION. DR. DE LA GARZA AGREES THAT PATIENT OUTLOOK IS GRIM AND WILL SPEAK WITH DAUGHTER TODAY.
--- NOTE | 2020-07-22 12:13 | 2DMMODE ---
[facility] [address] [place] [address] 2 D/M-MODE ECHOCARDIOGRAM Name: REGINA MORA Jose Room #: 247-P ADM IN M.R.#: [id number] Admission: 07/20/20 Attend Phys: Zhao Cooper MD Discharge: Date of : 38 Report #: [id number] THIS REPORT FOR: cc: FAM - Family physician unknown FAM - Family physician unknown Miguelito Pineda MD ~ APPROVED REPORT Study performed: 07/22/2020 08:28:43 EXAM: Comprehensive 2D, Doppler, and color-flow Echocardiogram Patient Location: ICU Room #: [facility] Status: routine BSA: 2.75 HR: 94 bpm BP: 93/28 mmHg Other Information Study Quality: Technically Difficult Technically limited study due to body habitus, inability to position patient, patient on ventilator. Indications COPD Diabetes CAD Hypertension/HDD resp failure. AVR in Dec 2019? 2D Dimensions RVDd: 39.39 mm IVSd: 15.08 (7-11mm) LVOT Diam: 23.53 (18-24mm) LVDd: 47.62 mm PWd: 17.25 (7-11mm) Ascending Ao: 23.61 (22-36mm) LVDs: 36.68 (25-40mm) Aortic Root: 24.50 mm IVC: 20.00 mm Volumes Left Atrial Volume (Systole) Single Plane 4CH: 54.12 mL Single Plane 2CH: 116.75 mL LA ESV Index: 31.00 mL/m2 [facility] [address] [place] [address] 2 D/M-MODE ECHOCARDIOGRAM Name: REGINA MORA Room #: 247-P [facility] IN ..#: [id number] Admission: 07/20/20 Attend Phys: Zaho Cooper MD Discharge: Date of : 38 Report #: [id number] Aortic Valve AoV Peak Miguel.: 3.76 m/s AO Peak Gr.: 56.63 mmHg LVOT Max P.03 mmHg AO Mean Gr.: 25.06 mmHg LVOT Mean P.95 mmHg AO V2 Mean: 2.32 m/s LVOT Max V: 1.58 m/s AO V2 VTI: 47.08 cm LVOT Mean V: 1.01 m/s DESI (VTI): 2.03 cm2 LVOT V1 VTI: 21.95 cm DESI Vmax: 1.83 cm2 SV (LVOT): 95.40 mL Mitral Valve E/A Ratio: 1.1 MV Decel. Time: 273.50 ms MV E Max Miguel.: 1.48 m/s MV A Miguel.: 1.33 m/s MV PHT: 79.31 ms IVRT: 78.43 ms Pulmonary Valve PV Peak Miguel.: 1.02 m/s PV Peak Gr.: 4.16 mmHg Tricuspid Valve RAP Estimate: 5.00 mmHg Left Ventricle The left ventricle is normal size. Moderate concentric left ventricular hypertrophy. Left ventricular systolic function is borderline. LVEF is 50%. Right Ventricle Right ventricle is at the upper limits of normal. The right ventricular systolic function is normal. Atria Left atrium is at the upper limits of normal. Right atrium is at the upper limits of normal. Aortic Valve The aortic valve is not well visualized. No aortic regurgitation is present. Mild aortic valve stenosis vs. normal AVR. Chart states AVR in Dec 2019, previous echo 10/04/2019 severe aortic valve stenosis with DESI of 0.8 cm2, max pressure gradient of 92 mmHg and mean pressure gradient of 62 mmHg. Current DESI 1.8 cm2, max pressure gradient of 57 mmHg, and mean pressure gradient of 25 mmHg. Mitral Valve [facility] [address] [place] [address] 2 D/M-MODE ECHOCARDIOGRAM Name: REGINA MORA Room #: 247-P [facility] IN [facility]#: [id number] Admission: 07/20/20 Attend Phys: Zhao Cooper MD Discharge: Date of : 38 Report #: [id number] Moderate mitral annular calcification. Mitral valve leaflets are mildly thickened. Trace mitral regurgitation. Tricuspid Valve The tricuspid valve is normal in structure. There is no tricuspid valve regurgitation noted. Unable to assess PA pressure. Pulmonic Valve Pulmonic valve is not well visualized. Great Vessels The aortic root is normal in size. IVC is normal in size and collapses >50% with inspiration. Pericardium There is no pericardial effusion. <Conclusion> The left ventricle is normal size. LVEF is 50%. Moderate concentric left ventricular hypertrophy. Left atrium is at the upper limits of normal. The aortic valve is not well visualized. Mild aortic valve stenosis vs. normal AVR. Chart states AVR in Dec 2019, previous echo 10/04/2019 severe aortic valve stenosis with DESI of 0.8 cm2, max pressure gradient of 92 mmHg and mean pressure gradient of 62 mmHg. Current DESI 1.8 cm2, max pressure gradient of 57 mmHg, and mean pressure gradient of 25 mmHg. Moderate mitral annular calcification. Mitral valve leaflets are mildly thickened. Trace mitral regurgitation. The tricuspid valve is normal in structure. There is no tricuspid valve regurgitation noted. Unable to assess PA pressure. Pulmonic valve is not well visualized. There is no pericardial effusion. <ELECTRONICALLY SIGNED> By: Miguelito Pineda MD 07/22/20 1213 121 121 Miguelito Pineda MD /INF
--- NOTE | 2020-07-22 15:23 | NUR ---
>>>>>1340: UNRESPONSIVE WITH ONLY VERSED 1MG INFUSING. VASOPRESSIN, NEOSYNEPHRINE, LEVOPHED AND EPI GTTS INFUSING. AVERAGING SBP IN 90'S WITH LOW DIASTOLIC BP'S CONTRIBUTING TO MAP'S IN THE UPPER 30'S TO LOW 40'S. DEXTROSE AND INSULIN GIVEN FOR ELEVATED POTASSIUM. ACCELERATED JUNCTIONAL WITH WIDENING QRS COMPLEX, BREATHING ABOVE VENT SET RATE, NO URINE OUTPUT. LEGS PROGRESSIVELY MOTTLED AND COOL ESPECIALLY L LOWER EXTREMITY. DISCUSSED WITH DAUGHTER PT'S DETERIORATING STATUS WITH AN ADDITIONAL GTT FOR BP SUPPORT, KNEE INFECTION ADVERSELY AFFECTING HIS BP AND KIDNEYS. FAMILY FACE TIMED FOR 20 MINUTES. >>>>>>>[id number] ÁNGEL LOPEZ, DAUGHTER CALLED REQUESTING COMFORT CARE STATUS. DR. MACEDO NOTIFIED, COMFORT CARE ORDERED. FAMILY REQUESTING TO BE PRESENT, TO SEE PT FROM OUTSIDE THE ROOM. SPOKE WITH Katarina AMAYA RN CHARGE NURSE, THEN CHANO MURCIALABELING MACHINE OPERATOR REQUESTING FAMILY PRESENCE. CHANO MURCIA STATED, "I ATTEMPTED TO CONTACT Del LEVINE, RN TRANSITION. NO RESPONSE AT THIS TIME". NOW COMFORT CARE, WHEN PT'S HR ABRUPTLY DECREASED FROM THE 80'S TO THE LOWER 40'S, PHONE CALL IMMEDIATELY PLACED TO ÁNGEL, DAUGHTER TO SPEAK TO HER FATHER ON THE PHONE. FACE TIME ALSO PROVIDED WITH RN REMAINING IN ROOM HOLDING PT'S HAND AND PROVIDING SUPPORT. MORPHINE GTT INFUSING, THEN IV GTTS DISCONTINUED. AT 1523, NO AUDIBLE HEARTBEAT, AYSTOLE, PUPILS FIXED AND DILATED, BREATHING ONLY AT VENT SET RATE WHEN VENTILATIONS PER VENT DISCONTINUED, NO BREATHING PRESENT. CALL PLACED TO DR. MACEDO. >>>>>>>194: SEE THE FOLLOWING FORMS FOR DETAILS: NURSING SUMMARY WORKSHEET, DONOR REFERRAL NOTIFICATION & EVALUATION AND BODY RELEASE FORM. HOSPITAL SECURITY PRESENT TO CLIN TECH BODY FROM ICU TO TRANSPORT TO THE [facility]. TRANSFERRED WITH FACE SHEET AND FORMS.
--- NOTE | 2020-07-25 08:52 | HC ---
[facility] [place] [address] [place] [address] CONSULTATION Name: REGINA MORA Room #: 247-P [facility] IN .R.#: [id number] Admission: 07/20/20 Attend Phys: Zhao Cooper MD Discharge: 07/22/20 Date of : 38 Report #: [id number] THIS REPORT FOR: cc: IBAN - Family physician unknown IBAN - Family physician unknown Valentino Mak MD ~ CC: Zhao FERRERA unknown DATE OF SERVICE: 07/21/2020 WOUND CARE CONSULTATION PERSONAL PHYSICIAN: Tiki. CHIEF COMPLAINT: Right knee wound with cellulitis. HISTORY OF PRESENT ILLNESS: This is an 80-year-old white male who is currently in the ICU secondary to sepsis, presumably secondary to left knee wound. According to the patient, he fell a few weeks ago and suffering abrasion to his left knee of which he does have a total knee replacement and states that the area kept getting progressively worse, which prompted him to come to the Emergency Department to be admitted. At that time, the patient was found to have cellulitis and sepsis secondary to the knee wound. He noticed that he was having increasing pain and swelling around the left knee, but denied fevers or chills. The patient denies any other associated wounds at this time. PAST MEDICAL HISTORY: Significant for diabetes, polymyalgia rheumatica, morbid obesity, left total knee arthroplasty, aortic valve replacement. CURRENT MEDICATIONS: Multiple. I reviewed the patient's medication list. DRUG ALLERGIES: None. SOCIAL HISTORY: The patient does not smoke or drink alcohol. FAMILY HISTORY: Not pertinent to current medical condition. REVIEW OF SYSTEMS: CONSTITUTIONAL: The patient denies fevers or chills. NEUROLOGIC: The patient with overall generalized weakness, but no isolated weakness in arms or legs. EYES: No complaints. ENT: No complaints. CARDIAC: The patient has chronic lower extremity edema without chest pain or palpitation. [facility] [address] [place] [address] CONSULTATION Name: REGINA MORA Room #: 247-P [facility]#: [id number] Admission: 07/20/20 Attend Phys: Zhao Cooper MD Discharge: 07/22/20 Date of : 38 Report #: [id number] RESPIRATORY: The patient denies shortness of breath. Does have slight cough. Denies wheezing. GASTROINTESTINAL: The patient denies nausea, vomiting, abdominal pain. GENITOURINARY: The patient had urgency or frequency. MUSCULOSKELETAL: No complaints. SKIN: There is open wound on the left knee. PHYSICAL EXAMINATION: VITAL SIGNS: Stable. The patient is afebrile. GENERAL: This is a morbidly obese male who is in no obvious distress. HEENT: Normocephalic, atraumatic. Mucous membranes are dry. Pupils are round. Sclerae white. NECK: Supple, nontender. LUNGS: Slightly diminished breath sounds heard throughout. HEART: Regular. ABDOMEN: Obese, soft, nontender. EXTREMITIES: Evaluation of the left leg reveals increased erythema, warmth and tenderness. There is an open wound superior to the knee, which is 100% slough. There was moderate amount of serosanguineous drainage noted without significant odor. The erythema extends all the way up into the thigh. It is exquisitely tender to palpation. Distal neurovascular was intact. NEUROLOGIC: Cranial nerves 2-12 grossly intact. Motor and sensory grossly intact. LABORATORY DATA: White count 19.1, hemoglobin 14.0. IMPRESSION: 1. Traumatic wound, left knee, status post fall, now with associated left leg cellulitis and sepsis. 2. Diabetes mellitus type 2. 3. Chronic kidney disease. 4. Congestive heart failure. 5. Coronary artery disease. 6. History of chronic obstructive pulmonary disease. 7. Generalized debility. PLAN: At this time, we will start Dakin's wet to dry dressings pending orthopedic evaluation. Antibiotics have already been started. Once the patient is more stable, we will consider PT, OT for strengthening. We will continue all other current medications. We will continue to follow the patient. <ELECTRONICALLY SIGNED> By: Valentino Mak MD 07/25/20 0852 [id number] Valentino Mak MD /nt
== END 2020-07-22 15:23 | DRG 871 ==
LOC: ER 11:05 → EROBS 14:21 → ICU 14:21 → 3W 17:46 → ICU 07-21 03:17
PROVIDERS: Emergency Medicine; Internal Medicine Nephrology; Internal Medicine Pulmonary Disease; Nurse Practitioner; ADMIT Hospitalist; ATTEND Hospitalist
PROC: B548ZZA Ultrasonography of Superior Vena Cava, Guidance (ICD-10-PCS; principal; 2020-07-21)
PROC: 0BH18EZ Insertion of Endotracheal Airway into Trachea, Via Natural or Artificial Opening Endoscopic (ICD-10-PCS; principal; 2020-07-21)
PROC: 05HY33Z Insertion of Infusion Device into Upper Vein, Percutaneous Approach (ICD-10-PCS; principal; 2020-07-21)
PROC: 5A12012 Performance of Cardiac Output, Single, Manual (ICD-10-PCS; principal; 2020-07-21)
PROC: 5A1945Z Respiratory Ventilation, 24-96 Consecutive Hours (ICD-10-PCS; principal; 2020-07-21)
PROC: 5A1D70Z Performance of Urinary Filtration, Intermittent, Less than 6 Hours Per Day (ICD-10-PCS; principal; 2020-07-21)
PROC: 02HV33Z Insertion of Infusion Device into Superior Vena Cava, Percutaneous Approach (ICD-10-PCS; principal; 2020-07-21)
DX: A41.59 Other Gram-negative sepsis (principal); N17.0 Acute kidney failure with tubular necrosis; J96.01 Acute respiratory failure with hypoxia; R65.21 Severe sepsis with septic shock; Z68.42 Body mass index [BMI] 45.0-49.9, adult; E66.2 Morbid (severe) obesity with alveolar hypoventilation; L03.116 Cellulitis of left lower limb; I13.0 Hypertensive heart and chronic kidney disease with heart failure and stage 1 through stage 4 chronic kidney disease, or unspecified chronic kidney disease; N18.4 Chronic kidney disease, stage 4 (severe); I46.8 Cardiac arrest due to other underlying condition; E11.22 Type 2 diabetes mellitus with diabetic chronic kidney disease; I25.10 Atherosclerotic heart disease of native coronary artery without angina pectoris; J44.9 Chronic obstructive pulmonary disease, unspecified; M10.9 Gout, unspecified; I50.9 Heart failure, unspecified; E11.649 Type 2 diabetes mellitus with hypoglycemia without coma; E03.9 Hypothyroidism, unspecified; E87.5 Hyperkalemia; I95.9 Hypotension, unspecified; M35.3 Polymyalgia rheumatica; Z96.652 Presence of left artificial knee joint; Z20.828 Contact with and (suspected) exposure to other viral communicable diseases; Z66 Do not resuscitate; Z99.81 Dependence on supplemental oxygen; Z98.42 Cataract extraction status, left eye; Z98.41 Cataract extraction status, right eye; Z90.49 Acquired absence of other specified parts of digestive tract; Z95.4 Presence of other heart-valve replacement; Z79.899 Other long term (current) drug therapy; Z79.4 Long term (current) use of insulin; Z79.82 Long term (current) use of aspirin; Z72.89 Other problems related to lifestyle
CPT/HCPCS: 10078; 10879; 32100